=== PATIENT | male | born 1995 | race Caucasian/White ===

== ENCOUNTER 2017-03-10 09:30 | Day surgery (SDC) | payer SELFPAY ==
[~2017-03-10 09:30] MED LIST: Lactated Ringers 1,000 ML IV SCH; ceFAZolin 2 GM in Premix Bag 1 BAG IV ONE
[2017-03-10] MEDS ORDERED: fentaNYL 100 MCG/2 ML SDV ONE (10:27)
[2017-03-10] MEDS ORDERED: Propofol 200 MG/20 ML SDV ONE (10:27)
[2017-03-10] MEDS ORDERED: Ondansetron 4 MG/2 ML SDV ONE (10:27)
[2017-03-10] MEDS ORDERED: Lidocaine 2% 5 ML SDV ONE (10:27)
[2017-03-10] MEDS ORDERED: Midazolam 1 MG/ML 2 ML SDV ONE (10:28)
[2017-03-10] MEDS ORDERED: Bupivacaine 0.25%/EPINEPHrine 1:200,000 10 ML SDV ONE (10:40)
--- NOTE | 2017-03-10 10:48 | PCM.PREANE ---
Preanesthetic Assessment - Anesthesia/Transfusion/Family Hx Anesthesia History: Prior Anesthesia Without Reaction Family History of Anesthesia Reaction: No Transfusion History: Unknown Intubation History: Unknown - Review of Systems General: No Symptoms Pulmonary: No Symptoms Cardiovascular: No Symptoms Gastrointestinal: No symptoms Neurological: No Symptoms Other: Reports: None - Physical Assessment O2 Sat by Pulse Oximetry: 100 Respiratory Rate: 16 Vital Signs: Last Vital Signs Temp 36.2 C 03/10/17 09:40 Pulse 76 03/10/17 09:40 Resp 16 03/10/17 09:40 BP 119/60 03/10/17 09:40 Pulse Ox 100 03/10/17 09:40 Height: 1.8 m Weight: 73.936 kg ASA Class: 2 Mental Status: Alert & Oriented x3 Airway Class: Mallampati = 2 Dentition: Reports: Normal Dentition Thyro-Mental Finger Breadths: 3 Mouth Opening Finger Breadths: 3 ROM/Head Extension: Full Lungs: Clear to auscultation, Normal respiratory effort Cardiovascular: Regular Rate, Regular Rhythm - Allergies Allergies/Adverse Reactions: Allergies Allergy/AdvReac Type Severity Reaction Status Date / Time No Known Allergies Allergy Verified 03/07/17 14:11 - Blood Blood Available: No - Anesthesia Plan Pre-Op Medication Ordered: None - Acknowledgements Anesthesia Type Planned: General Anesthesia Pt an Appropriate Candidate for the Planned Anesthesia: Yes Alternatives and Risks of Anesthesia Discussed w Pt/Guardian: Yes Pt/Guardian Understands and Agrees with Anesthesia Plan: Yes PreAnesthesia Questionnaire Musculoskeletal History: Reports: Fracture Neurological History: Reports: Migraines Psychiatric History: Reports: Anxiety Hematologic History: Reports: Other (see below) Other Hematologic History: pt unsure, states he may have had a transfusion at age 5 or 6 due to injury to hand Dermatologic History: Reports: Other (see below) Other Dermatologic History: small lesion on left cheek - Past Surgical History Head Surgeries/Procedures: Reports: None HEENT Surgical History: Reports: Adenoidectomy, Tonsillectomy Musculoskeletal Surgical History: Reports: Other (see below) Other Musculoskeletal Surgeries/Procedures:: surgery to middle finger-left hand - SUBSTANCE USE Smoking Status *Q: Current Every Day Smoker (1/2 ppd) Tobacco Use Within Last Twelve Months: Cigarettes Days Per Week of Alcohol Use: 7 Number of Drinks Per Day: 3 Total Drinks Per Week: 21 Recreational Drug Type: Reports: Marijuana/Hashish Recreational Drug Last Use: 2 weeks ago, states he "quit" - HOME MEDS Home Medications: Home Meds . [No Known Home Meds] 03/07/17 [History] - CURRENT (IN HOUSE) MEDS Current Meds: Current Medications Lactated Ringer's (Ringers, Lactated) 1,000 mls @ 125 mls/hr IV ASDIRECTED [facility] Last Admin: 03/10/17 09:42 Dose: 125 mls/hr Discontinued Medications Bupivacaine HCl/Epinephrine Bitart (Marcaine 0.25%/Epinephrine 1:200,000) Confirm Administered Dose 20 ml .ROUTE .STK-MED ONE Stop: 03/10/17 10:41 Fentanyl (Sublimaze) Confirm Administered Dose 100 mcg .ROUTE .STK-MED ONE Stop: 03/10/17 10:28 Cefazolin Sodium/Dextrose 2 gm (/ Premix) 50 mls @ 100 mls/hr IV ONETIME ONE Stop: 03/10/17 05:29 Lidocaine (Xylocaine-Mpf 2%) Confirm Administered Dose 5 ml .ROUTE .STK-MED ONE Stop: 03/10/17 10:28 Midazolam HCl (Versed 1 Mg/Ml) Confirm Administered Dose 2 mg .ROUTE .STK-MED ONE Stop: 03/10/17 10:29 Ondansetron HCl (Zofran) Confirm Administered Dose 4 mg .ROUTE .STK-MED ONE Stop: 03/10/17 10:28 Propofol (Diprivan 20 Ml) Confirm Administered Dose 200 mg .ROUTE .STK-MED ONE Stop: 03/10/17 10:28
[2017-03-10] MEDS ORDERED: Ketorolac 30 MG/ML SDV ONE (11:12)
[2017-03-10] MEDS ORDERED: fentaNYL 100 MCG/2 ML SDV IVPUSH PRN (11:15)
[2017-03-10] MEDS ORDERED: Octyl 2-Cyanoacrylate 1 Tube ONE (11:27)
--- NOTE | 2017-03-10 11:40 | PCM.OPNOTE ---
- General Post-Op/Procedure Note Date of Surgery/Procedure: 03/10/17 Operative Procedure(s): excisional biopsy facial mass, L Findings: yellow color necrosis w cyst coat, 2 cm from L mouth angle; [id number] Pre Op Diagnosis: face mass Post-Op Diagnosis: Same Anesthesia Technique: General LMA Primary Surgeon: Brayan Tang Complications: None Condition: Good
[2017-03-10] MEDS ORDERED: Acetaminophen/oxyCODONE 325-5 MG Tab PO PRN (11:42)
[2017-03-10 12:50] VITALS: BP 124/70
--- NOTE | 2017-03-10 18:32 | OR ---
SURGEON: Brayan Tang MD DATE OF PROCEDURE: 03/10/2017 PREOPERATIVE DIAGNOSIS: Left facial mass. POSTOPERATIVE DIAGNOSIS: Left facial mass. PROCEDURE PERFORMED: Excision biopsies. COMPLICATIONS: None. FINDING: melting cheese appearance stuff with cyst coating suggests of possible infected sebaceous cyst. PROCEDURE IN DETAIL: The patient was taken to the operating room, placed in a supine position. Upon induction of general endotracheal anesthesia, the left facial area was prepped and draped in a sterile fashion. The palpable mass was about 2 cm from the angle of the left lip. The upper lip and lower lip joined together, is about right 2 cm from there and the polyp was about 1 cm. The area was numbed with lidocaine and epi, and an incision in the direction of the circumference of the mouth was made about 6 to 7 mm, resulting in eruption of yellow necrosis and the incision was then widened up with of blunt and sharp dissection and found a cyst coat and this was then tried to be retrieved as much as possible, Gram stain C and S was sent, and the area was palpated there is normal palpable mass and the floor of the cyst mass was burned a bit to reduce chance of recurrence and followed with extensive irrigation. Wound was closed with 4-0 Monocryl and covered with Dermabond. The patient was then awakened, extubated, and transferred to recovery room in hemodynamically stable condition. The patient tolerated the procedure well. There were no intraoperative complications. As always, thank you for the kind referral. FRENCH LEWIS /[id number] MARCOS
== END 2017-03-10 12:58 | disposition home or self-care (01) ==
LOC: MW.SDS 09:30
PROVIDERS: ATTEND Surgery
PROC: 0JB10ZZ Excision of Face Subcutaneous Tissue and Fascia, Open Approach (ICD-10-PCS; principal; 2017-03-10)
DX: R22.0 Localized swelling, mass and lump, head (principal); F17.210 Nicotine dependence, cigarettes, uncomplicated; Z90.89 Acquired absence of other organs
CPT/HCPCS: 11441; 11442; 87070; 87075; 87205; A9270; J1885; J2250; J2405; J3010; J7120; 00300; 88305; J2704

== ENCOUNTER 2017-07-29 17:40 | Emergency (ER) | payer SELFPAY ==
--- NOTE | 2017-07-29 18:08 | EDM.PDOC ---
ED HPI GENERAL MEDICAL PROBLEM - General Chief Complaint: General Stated Complaint: PT HAS BLOOD CLOT IN GROIN Time Seen by Provider: 07/29/17 18:07 Source of Information: Reports: Patient - History of Present Illness INITIAL COMMENTS - FREE TEXT/NARRATIVE: HISTORY AND PHYSICAL: []22-year-old male presents with pain to the left groin History of Present Illness: []Patient states that this pain has been present for a few years off and on but now is more constant Review of Systems: As per history of present illness and below otherwise all systems reviewed and negative. Past medical history: As per history of present illness and as reviewed below otherwise noncontributory. Surgical history: As per history of present illness and as reviewed below otherwise noncontributory. Social history: No reported history of drug or alcohol abuse. Family history: As per history of present illness and as reviewed below otherwise noncontributory. Physical exam: HEENT: Atraumatic, normocehpalic, pupils reactive, negative for conjunctival pallor or scleral icterus, mucous membranes moist, throat clear, neck supple, nontender, trachea midline. Lungs: Clear to auscultation, breath sounds equal bilaterally, chest non tender. Heart: S1S2, regular, negative for clicks, rubs, or JVD. Abdomen: Soft, nondistended, nontender. Negative for masses or hepatossplenmegaly. Negative for costovertebral tenderness. Pelvis: Stable nontender. Genitourinary: Area of concern is to the left groin slightly tender upon palpation unable to palpate pulse. Slight rash is present. well demarcated line , non-raised, erythematous Rectal: Deferred Extremities: Atraumatic, negative for cords or calf pain. Neurovascular unremarkable. Neuro: Awake, alert, oriented. Cranial nerves II through XII unremarkable. Cerebellum unremarkable. Motor and sensory unremarkable throughout. Exam nonfocal. Have discussed with patient that the ultrasound that was performed did not identify any blood clot did not identify any hernia Diagnostics: [Ultrasound Doppler] Therapeutics: [] Impression: [Muscle spasm] Plan: [Discharged to home Ibuprofen as directed on the bottle Ice or heat depending on which feels better Follow-up with your primary care provider] Definitive disposition and diagnosis as appropriate pending reevaluation and review of above. Left Groin Pain Score (Numeric/FACES): 8 - Related Data Allergies Allergy/AdvReac Type Severity Reaction Status Date / Time No Known Allergies Allergy Verified 07/29/17 18:08 Home Meds: Home Meds . [No Known Home Meds] 03/07/17 [History] Past Medical History Musculoskeletal History: Reports: Fracture Neurological History: Reports: Migraines Psychiatric History: Reports: Anxiety Hematologic History: Reports: Other (See Below) Other Hematologic History: pt unsure, states he may have had a transfusion at age 5 or 6 due to injury to hand Dermatologic History: Reports: Other (See Below) Other Dermatologic History: small lesion on left cheek - Past Surgical History Musculoskeletal Surgical History: Reports: Other (See Below) Social & Family History - Tobacco Use Smoking Status *Q: Current Every Day Smoker (1/2 ppd) Packs/Tins Daily: 0.5 - Alcohol Use Days Per Week of Alcohol Use: 7 Number of Drinks Per Day: 3 Total Drinks Per Week: 21 - Recreational Drug Use Drug Use in Last 12 Months: Yes Recreational Drug Type: Reports: Marijuana/Hashish Recreational Drug Last Use: 2 weeks ago, states he "quit" ED ROS GENERAL - Review of Systems Review Of Systems: ROS reveals no pertinent complaints other than HPI. ED EXAM, GENERAL - Physical Exam Exam: See Below (See dictation) Course - Vital Signs Last Recorded V/S: Last Vital Signs Temp 36.4 C 07/29/17 18:03 Pulse 101 H 07/29/17 19:08 Resp 20 07/29/17 19:08 BP 137/80 07/29/17 19:08 Pulse Ox 97 07/29/17 19:08 - Orders/Labs/Meds Orders: Active Orders 24 hr Category Date Time Status Venous Doppler Lwr Ext Lt [US] Stat Exams 07/29/17 18:11 Taken Meds: Medications Discontinued Medications Generic Name Dose Route Start Last Admin Trade Name Freq PRN Reason Stop Dose Admin Ketorolac Tromethamine 30 mg 07/29/17 19:03 07/29/17 19:37 Toradol IM 07/29/17 19:04 30 mg ONETIME ONE Administration Departure - Departure Time of Disposition: 19:53 Disposition: Home, Self-Care 01 Condition: Good Clinical Impression: Muscle spasm - Discharge Information Referrals: PCP,None [Primary Care Provider] - Forms: ED Department Discharge Additional Instructions: The following information is given to patients seen in the emergency department who are being discharged to home. This information is to outline your options for follow-up care. We provide all patients seen in our emergency department with a follow-up referral. The need for follow-up, as well as the timing and circumstances, are variable depending upon the specifics of your emergency department visit. If you don't have a primary care physician on staff, we will provide you with a referral. We always advise you to contact your personal physician following an emergency department visit to inform them of the circumstance of the visit and for follow-up with them and/or the need for any referrals to a consulting specialist. The emergency department will also refer you to a specialist when appropriate. This referral assures that you have the opportunity for followup care with a specialist. All of these measure are taken in an effort to provide you with optimal care, which includes your followup. Under all circumstances we always encourage you to contact your private physician who remains a resource for coordinating your care. When calling for followup care, please make the office aware that this follow-up is from your recent emergency room visit. If for any reason you are refused follow-up, please contact the [facility] emergency department at and asked to speak to the emergency department charge nurse. During your examination ultrasound did not identify a blood clot or a inguinal hernia You may try ibuprofen as directed on the bottle Ice or heat to this area depending on which feels better on 20 minutes off 20 minutes Follow-up with your primary care provider should this not improve - My Orders Last 24 Hours: My Active Orders 07/29/17 18:11 Venous Doppler Lwr Ext Lt [US] Stat - Assessment/Plan Last 24 Hours: My Active Orders 07/29/17 18:11 Venous Doppler Lwr Ext Lt [US] Stat
[2017-07-29] MEDS ORDERED: Ketorolac 30 MG/ML SDV IM ONE (19:03)
[2017-07-29 19:08] VITALS: BP 137/80
--- NOTE | 2017-08-01 16:14 | US ---
EXAM DATE: 07/29/17 PATIENT'S AGE: 22 Patient: SHARON SOTO Facility: [place], [place] Site . Site : 1995 Study: US Extremity Left [id number]/22/2017 7:02:26 PM Ordering Physician: Doctor Ceja Final Report: INDICATION: Left groin pain. TECHNIQUE: Ultrasound venous duplex lower left extremity. Compression venous exam was performed using kinney-scale, color Doppler, and spectral Doppler analysis. FINDINGS: Sonographic imaging demonstrates the left common femoral, deep femoral, superficial femoral, popliteal, posterior tibial and greater saphenous and the contralateral right common femoral veins to be fully compressible with normal color Doppler blood flow. The left groin was evaluated with and without Valsalva maneuver. No hernia is identified. IMPRESSION: 1. No evidence of deep venous thrombosis within the left lower extremity. 2. No left groin hernia is identified. Dictated by Malgorzata Duarte MD @ 07/29/2017 7:45:25 PM Dictated by: Malgorzata Duarte MD @ 07/29/2017 19:45:33 (Electronic Signature) Report Signed by Proxy. MARCOS
== END 2017-07-29 20:14 | disposition home or self-care (01) ==
LOC: MW.ED 17:40
DX: M62.838 Other muscle spasm (principal); F17.210 Nicotine dependence, cigarettes, uncomplicated
CPT/HCPCS: 93971; 96372; 99283; J1885; 99282